=== PATIENT | male | born 1970 | race Caucasian/White ===

== ENCOUNTER 2017-06-20 12:59 | Emergency (ER) | payer OTHER ==
[~2017-06-20] VITALS: Ht 170.2 cm; Wt 71.1 kg
[2017-06-20 13:02] VITALS: TEMP 37.1; Ht 170.2 cm; Wt 71.1 kg
[2017-06-20 13:49] LABS: BASO % 0.1 %; BASO ABS # 0.01 K/uL (0-0.2); HEMATOCRIT 47.7 % (42-52); HEMOGLOBIN 16.9 g/dL (14.0-18.0); IG# 0.05 K/uL (0.00-0.02); LYMPH % 10.1 %; MEAN CELL VOLUME 87.7 fL (80-100); MEAN CORPUSCULAR HEMOGLOBIN 31.1 pg (25-34); MEAN CORPUSCULAR HGB CONC 35.4 g/dl (32-36); MONO % 8.5 %; MONO ABS # 1.18 K/uL (0.11-0.59); NEUT % 80.9 %; NEUT ABS # 11.29 K/uL (1.4-6.5); PLATELET COUNT 262 K/uL (130-400); RED CELL DISTRIBUTION WIDTH CV 13.1 % (11.5-14.5); RED CELL DISTRIBUTION WIDTH SD 41.7 fL (36.4-46.3); WHITE BLOOD COUNT 13.93 K/uL (4.8-10.8)
[2017-06-20] MEDS ORDERED: GI COCKTAIL PO STA (13:51)
[2017-06-20] MEDS ORDERED: ALUMINUM/MAGNESIUM SUSP 30 ML UDC ONE (13:54)
[2017-06-20] MEDS ORDERED: LIDOCAINE HCL 2% VISC SOLN 20 ML UDC ONE (13:54)
[2017-06-20 13:57] LABS: PTT PATIENT 25.1 SECONDS (21.0-31.0)
[2017-06-20] MEDS ORDERED: SODIUM CHLORIDE 0.9% 1000ML 1,000 ML IV STA (14:01)
[2017-06-20] MEDS ORDERED: ONDANSETRON INJ 2 MG/ML 2 ML VIAL IV STA (14:01)
[2017-06-20 14:07] LABS: ALBUMIN 4.3 gm/dl (3.4-5.0); ALT/SGPT 27 U/L (12-78); AST/SGOT 22 U/L (15-37); BLOOD UREA NITROGEN 22 mg/dl (7-18); CALCIUM 9.4 mg/dl (8.5-10.1); CARBON DIOXIDE 28 mmol/L (21-32); CREATININE 1.22 mg/dl (0.60-1.40); GLUCOSE 109 mg/dl (70-99); LIPASE 179 U/L (73-393); POTASSIUM 3.1 mmol/L (3.5-5.1); SODIUM 139 mmol/L (136-145)
[2017-06-20 14:12] LABS: ALKALINE PHOSPHATASE 87 U/L (45-117); TOTAL PROTEIN 8.6 gm/dl (6.4-8.2)
[2017-06-20] MEDS ORDERED: RANI150T85 PO (14:22)
[2017-06-20] MEDS ORDERED: OPTIRAY 320 IV PRN (14:30)
--- NOTE | 2017-06-20 14:43 | DIAGNOSTIC IMAGING REPORT ---
GALLBLADDER-ABD LIMITED CLINICAL HISTORY: 47 years-old Male presenting with ABd pain, emesis. TECHNIQUE: Real-time grayscale and limited color Doppler ultrasound imaging of the abdomen limited to the right upper quadrant was performed. COMPARISON: 04/09/2014. FINDINGS: Pancreas: Visualized portions of the pancreatic head and body normal. Liver: Heterogeneity of liver parenchyma echotexture, likely indicating fibrosis or steatosis. The liver measures 13.1 cm in maximal sagittal dimension. No sonographic evidence of hepatic mass. Main portal vein patent with normal directional flow. Biliary: No intrahepatic biliary ductal dilatation. Common bile duct measures up to 4-5 mm in diameter. Gallbladder: No evidence of gallstones, gallbladder wall thickening, gallbladder distention, or pericholecystic fluid or inflammatory change. Right kidney: Normal in appearance. No hydronephrosis. Ascites: None. Other: None. IMPRESSION: 1. Heterogeneity of liver parenchyma could suggest underlying steatosis or fibrosis. 2. No cholelithiasis or biliary ductal dilatation. Electronically signed by: Torito Luna M.D. 06/20/2017 2:42 PM Dictated Date/Time: 06/20/2017 2:40 PM
--- NOTE | 2017-06-20 16:15 | DIAGNOSTIC IMAGING REPORT ---
CT ABD/PELVIS IV AND ORAL CONT CLINICAL HISTORY: Generalized abdominal pain. Emesis. Hematochezia. COMPARISON STUDY: April 09, 2014 TECHNIQUE: Following the IV administration of 119 mL of Optiray-320, CT scan of the abdomen and pelvis was performed from the lung bases to the proximal femurs. Images are reviewed in the axial, sagittal, and coronal planes. IV contrast was administered without complication. A dose lowering technique was utilized adhering to the principles of ALARA. CT DOSE: 328.23 mGy.cm FINDINGS: Lower chest: There are mild dependent atelectatic changes. Liver: The contrast-enhanced liver is normal in size, contour, and attenuation. There is no intrahepatic biliary ductal dilatation. The hepatic veins and portal veins are patent. Gallbladder: Unremarkable. Spleen: Normal in size and attenuation. Pancreas: Unremarkable. Adrenal glands: Unremarkable. Kidneys: There is symmetric renal cortical enhancement. The kidneys are normal in size without hydronephrosis. Bowel: There are no transition zones indicate bowel obstruction. There is no evidence of acute appendicitis. There is colonic diverticulosis. There are no acute peridiverticular inflammatory changes. Peritoneum: There is no intraperitoneal free air or abdominal ascites. Vasculature: The abdominal aorta is normal in course and caliber. Adenopathy: None. Pelvic viscera: The bladder, and pelvic viscera are unremarkable. Skeletal structures: There is right-sided L5 spondylolysis IMPRESSION: 1. No acute intra-abdominal or pelvic findings 2. No evidence of bowel obstruction. No evidence of free air 3. No evidence of acute appendicitis 4. Diverticulosis. No evidence of acute diverticulitis. Electronically signed by: Darrin Michaud M.D. 06/20/2017 4:14 PM Dictated Date/Time: 06/20/2017 4:10 PM
[2017-06-20] MEDS ORDERED: POTASSIUM CHLORIDE 10 MEQ TABCR PO STA (17:10)
[2017-06-20] MEDS ORDERED: ONDA4TAB10 SL (17:15)
[2017-06-20] MEDS ORDERED: FAMO20TA9 PO (17:15)
--- NOTE | 2017-06-20 17:15 | EMERGENCY ROOM VISIT NOTE ---
History First contact with patient: 13:06 Chief Complaint: ABDOMINAL PAIN Stated Complaint: PAIN IN STOMACH Nursing Triage Summary: Pt reports diarrhea and vomiting since yesterday. Pt stated "I have been having issues with getting nauseous while I am having a BM for the past 8 months." also reports "blood in vomit and stool." Coffee ground emesis. Abdominal pain is 2/10 at this time. Regular bowel movements. History of Present Illness The patient is a 47 year old male who presents to the Emergency Room with complaints of "abdominal pain". The patient states that he has been experiencing abdominal pain/nausea and vomiting now for about 8 months. It has worsened over the past few days. The patient states that all of this began as nausea, and he thought this was because of not eating well. He notes that his stools are also now peanut butter colored, and some mucus. He states that there is increase in bowel movement frequency. He also notes that at times he will have the sensation of vomit directly after defecation. He states that last night he went to the bathroom 10 times, and small drops of blood were visualized in the toilet bowl. He has tried Zantac and Tums which help slightly. He takes ibuprofen every other day. He also try Zantac at times. He does admit to a 30 year history of marijuana smoking. No other drug use. No real tobacco or alcohol use. He rates the overall abdominal pain as a 4/10. Review of Systems A complete 10-point Review of Systems was discussed with the patient, with pertinent positives and negatives listed in the History of Present Illness. All remaining Review of Systems questions can be considered negative unless otherwise specified. Past Medical/Surgical History Medical Problems: (1) No known health problems Family History Diabetes, high blood pressure, cancer, gallbladder disease. Social History Smoking Status: Current Every Day Smoker Alcohol Use: none Drug Use: none Marital Status: Housing Status: lives with family Occupation Status: employed Current/Historical Medications Scheduled Famotidine (Pepcid), 20 MG PO DAILY Ondasetron Odt (Zofran Odt), 4 MG SL Q6H Ranitidine (Zantac), 150 MG PO DAILY Allergies Coded Allergies: No Known Allergies (Unverified , NONE, 01/08/13) Physical Exam Vital Signs Date Time Temp Pulse Resp B/P (MAP) Pulse Ox O2 Delivery O2 Flow Rate FiO2 06/20/17 17:22 77 16 128/74 96 Room Air 06/20/17 16:52 78 16 104/69 98 Room Air 06/20/17 14:44 61 16 136/87 98 Room Air 06/20/17 13:02 37.1 80 16 130/92 100 Room Air Physical Exam VITAL SIGNS - Vital signs and nursing notes were reviewed. Stable. Afebrile. GENERAL -47-year-old male appearing his stated age who is in no acute distress. Communicates well with provider and answers questions appropriately. SKIN - Without rashes. HEAD - NC/AT. EYES - PERRL with EOMI bilaterally. Sclera anicteric. EARS - No deformities of external structures noted on gross examination bilaterally. NOSE - Midline and without cyanosis. No epistaxis or purulent drainage noted. Septum midline without deviation or septal hematoma noted. MOUTH/OROPHARYNX - Without perioral cyanosis. NECK - No nuchal rigidity. LUNGS - Chest wall symmetric without accessory muscle use, intercostals retractions, or central cyanosis. Normal vesicular breath sounds CTA B/L. No wheezes, rales, or rhonchi appreciated. CARDIAC - RRR with S1/S2. No murmur, rubs, or gallops appreciated. ABDOMEN - Abdominal contour normal without pulsations or visible masses. BS normoactive all four quadrants. No tenderness, palpable masses, hepatosplenomegaly, or ascites noted. PSYCH - A&O, and cooperates fully with examiner. Pt is very pleasant and interacts well with examiner. RECTAL: After consent was obtained Hemoccult was obtained and was found to be negative. Rectal exam unremarkable. Medical Decision & Procedures ER Provider Diagnostic Interpretation: [~ rep ct add3]] GALLBLADDER-ABD LIMITED CLINICAL HISTORY: 47 years-old Male presenting with ABd pain, emesis. TECHNIQUE: Real-time grayscale and limited color Doppler ultrasound imaging of the abdomen limited to the right upper quadrant was performed. COMPARISON: 04/09/2014. FINDINGS: Pancreas: Visualized portions of the pancreatic head and body normal. Liver: Heterogeneity of liver parenchyma echotexture, likely indicating fibrosis or steatosis. The liver measures 13.1 cm in maximal sagittal dimension. No sonographic evidence of hepatic mass. Main portal vein patent with normal directional flow. Biliary: No intrahepatic biliary ductal dilatation. Common bile duct measures up to 4-5 mm in diameter. Gallbladder: No evidence of gallstones, gallbladder wall thickening, gallbladder distention, or pericholecystic fluid or inflammatory change. Right kidney: Normal in appearance. No hydronephrosis. Ascites: None. Other: None. IMPRESSION: 1. Heterogeneity of liver parenchyma could suggest underlying steatosis or fibrosis. 2. No cholelithiasis or biliary ductal dilatation. Electronically signed by: Torito Luna M.D. 06/20/2017 2:42 PM Dictated Date/Time: 06/20/2017 2:[address] ABD/PELVIS IV AND ORAL CONT CLINICAL HISTORY: Generalized abdominal pain. Emesis. Hematochezia. COMPARISON STUDY: April 09, 2014 TECHNIQUE: Following the IV administration of 119 mL of Optiray-320, CT scan of the abdomen and pelvis was performed from the lung bases to the proximal femurs. Images are reviewed in the axial, sagittal, and coronal planes. IV contrast was administered without complication. A dose lowering technique was utilized adhering to the principles of ALARA. CT DOSE: 328.23 mGy.cm FINDINGS: Lower chest: There are mild dependent atelectatic changes. Liver: The contrast-enhanced liver is normal in size, contour, and attenuation. There is no intrahepatic biliary ductal dilatation. The hepatic veins and portal veins are patent. Gallbladder: Unremarkable. Spleen: Normal in size and attenuation. Pancreas: Unremarkable. Adrenal glands: Unremarkable. Kidneys: There is symmetric renal cortical enhancement. The kidneys are normal in size without hydronephrosis. Bowel: There are no transition zones indicate bowel obstruction. There is no evidence of acute appendicitis. There is colonic diverticulosis. There are no acute peridiverticular inflammatory changes. Peritoneum: There is no intraperitoneal free air or abdominal ascites. Vasculature: The abdominal aorta is normal in course and caliber. Adenopathy: None. Pelvic viscera: The bladder, and pelvic viscera are unremarkable. Skeletal structures: There is right-sided L5 spondylolysis IMPRESSION: 1. No acute intra-abdominal or pelvic findings 2. No evidence of bowel obstruction. No evidence of free air 3. No evidence of acute appendicitis 4. Diverticulosis. No evidence of acute diverticulitis. Electronically signed by: Darrin Michaud M.D. 06/20/2017 4:14 PM Dictated Date/Time: 06/20/2017 4:10 PM Laboratory Results 06/20/17 13:40 Red Blood Count 5.44, Mean Corpuscular Volume 87.7, Mean Corpuscular Hemoglobin 31.1, Mean Corpuscular Hemoglobin Concent 35.4, Mean Platelet Volume 9.0, Neutrophils (%) (Auto) 80.9, Lymphocytes (%) (Auto) 10.1, Monocytes (%) (Auto) 8.5, Eosinophils (%) (Auto) 0.0, Basophils (%) (Auto) 0.1, Neutrophils # (Auto) 11.29, Lymphocytes # (Auto) 1.40, Monocytes # (Auto) 1.18, Eosinophils # (Auto) 0.00, Basophils # (Auto) 0.01 06/20/17 13:40 Test 06/20/17 13:40 06/20/17 14:00 White Blood Count 13.93 K/uL (4.8-10.8) Red Blood Count 5.44 M/uL (4.7-6.1) Hemoglobin 16.9 g/dL (14.0-18.0) Hematocrit 47.7 % (42-52) Mean Corpuscular Volume 87.7 fL (80-100) Mean Corpuscular Hemoglobin 31.1 pg (25-34) Mean Corpuscular Hemoglobin Concent 35.4 g/dl (32-36) Platelet Count 262 K/uL (130-400) Mean Platelet Volume 9.0 fL (7.4-10.4) Neutrophils (%) (Auto) 80.9 % Lymphocytes (%) (Auto) 10.1 % Monocytes (%) (Auto) 8.5 % Eosinophils (%) (Auto) 0.0 % Basophils (%) (Auto) 0.1 % Neutrophils # (Auto) 11.29 K/uL (1.4-6.5) Lymphocytes # (Auto) 1.40 K/uL (1.2-3.4) Monocytes # (Auto) 1.18 K/uL (0.11-0.59) Eosinophils # (Auto) 0.00 K/uL (0-0.5) Basophils # (Auto) 0.01 K/uL (0-0.2) RDW Standard Deviation 41.7 fL (36.4-46.3) RDW Coefficient of Variation 13.1 % (11.5-14.5) Immature Granulocyte % (Auto) 0.4 % Immature Granulocyte # (Auto) 0.05 K/uL (0.00-0.02) Prothrombin Time 10.7 SECONDS (9.0-12.0) Prothromb Time International Ratio 1.0 (0.9-1.1) Activated Partial Thromboplast Time 25.1 SECONDS (21.0-31.0) Partial Thromboplastin Ratio 1.0 Anion Gap 5.0 mmol/L (3-11) Est Creatinine Clear Calc Drug Dose 68.5 ml/min Estimated GFR () 80.2 Estimated GFR (Non- 69.2 BUN/Creatinine Ratio 17.6 (10-20) Calcium Level 9.4 mg/dl (8.5-10.1) Total Bilirubin 0.6 mg/dl (0.2-1) Aspartate Amino Transf (AST/SGOT) 22 U/L (15-37) Alanine Aminotransferase (ALT/SGPT) 27 U/L (12-78) Alkaline Phosphatase 87 U/L (45-117) Troponin I < 0.015 ng/ml (0-0.045) Total Protein 8.6 gm/dl (6.4-8.2) Albumin 4.3 gm/dl (3.4-5.0) Globulin 4.3 gm/dl (2.5-4.0) Albumin/Globulin Ratio 1.0 (0.9-2) Lipase 179 U/L (73-393) Urine Color DK YELLOW Urine Appearance CLEAR (CLEAR) Urine pH 7.0 (4.5-7.5) Urine Specific [place] 1.030 (1.000-1.030) Urine Protein 2+ (NEG) Urine Glucose (UA) NEG (NEG) Urine Ketones 2+ (NEG) Urine Occult Blood 3+ (NEG) Urine Nitrite NEG (NEG) Urine Bilirubin NEG (NEG) Urine Urobilinogen NEG (NEG) Urine Leukocyte Esterase NEG (NEG) Urine WBC (Auto) 1-5 /hpf (0-5) Urine RBC (Auto) >30 /hpf (0-4) Urine Hyaline Casts (Auto) 1-5 /lpf (0-5) Urine Epithelial Cells (Auto) 10-20 /lpf (0-5) Urine Bacteria (Auto) NEG (NEG) Medications Administered Medications (Trade) Dose Ordered Sig/Armando Route Start Time Stop Time Status Last Admin Dose Admin Al Hydroxide/Mg Hydroxide (Maalox Susp) 30 ml STK-MED ONCE .ROUTE 06/20/17 13:54 06/20/17 13:55 DC 06/20/17 13:59 30 ML Lidocaine HCl (Viscous Lidocaine 2% Soln) 20 ml STK-MED ONCE .ROUTE 06/20/17 13:54 06/20/17 13:55 DC 06/20/17 13:58 20 ML Sodium Chloride 1,000 ml @ 999 mls/hr Q1H1M STAT IV 06/20/17 14:01 06/20/17 15:10 DC 06/20/17 14:43 999 MLS/HR Ondansetron HCl (Zofran Inj) 4 mg NOW STAT IV 06/20/17 14:01 06/20/17 14:03 DC 06/20/17 14:43 4 MG Medical Decision Patient was seen and evaluated as above in room B5. Review was performed of nursing notes and vital signs. After obtaining a thorough history and physical examination the above work up was performed. CBC reveals slight leukocytosis. No concerning anemia. Coags normal. There is hypokalemia. There is evidence of dehydration with BUN slightly elevated. Gallbladder ultrasound was obtained. This was found to be negative and CT abd/pelvis which was also essentially negative. CT abd/pelvis obtained with the use of contrast. He attempted to drink the contrast but notes it was difficult. He was able to tolerate p.o. liquids prior to departure. CT was obtained because of the patient's persistence of abdominal complaints. Patient was not able to write emesis for us to test for Hemoccult. Rectal exam was performed after obtaining consent and no blood was noted. This was negative. I suspect he is likely experiencing reflux, and also possibly hyperemesis secondary to marijuana usage. No evidence of emergent process. I did discuss the case with the attending physician and subsequently the on-call GI specialist, Dr. Mendez. He does recommend discussing cessation of the marijuana use, initiation of Pepcid, and follow-up in the office by him calling first thing tomorrow. I believe this is reasonable. The patient was educated upon management, had questions answered prior to discharge, and was discharged home in good condition. He will also be given Zofran for nausea at home. While here he was given a GI cocktail, fluids and Zofran. Case was discussed with the attending physician. In the evaluation and treatment of this patient the following differential diagnoses were entertained: Gastritis, reflux, GERD, appendicitis, acute cholecystitis, hyperemesis cannabis Impression Primary Impression: Nausea & vomiting Additional Impression: Hypokalemia Departure Information Dispostion Home / Self-Care Condition GOOD Prescriptions Famotidine (PEPCID) 20 Mg Tab 20 MG PO DAILY for 30 Days, #30 TAB Prov: Nolan Ivory PA-C 06/20/17 Ondasetron Odt (ZOFRAN ODT) 4 Mg Tab 4 MG SL Q6H for Nausea, #6 TAB Prov: Nolan Ivory PA-C 18 Referrals No Doctor, Assigned (PCP) Frederick Mendez D.O. Patient Instructions Hypokalemia Dc, My [facility] Additional Instructions You have been treated in the Emergency Department your Abdominal Pain. Laboratory results and imaging studies have ruled out any emergent causes for your abdominal pain which would warrant admission or surgery. However, I do recommend follow-up with the computer technical support specialist. This is Dr. Mendez. At this time we recommend beginning Pepcid, 20 mg daily, as well as trying to cut back/ stop the marijuana usage. Your potassium was found to be low. Please refer to the handout with foods that are high in potassium. This should be repeated with the family doctor. Please follow-up as we discussed. They note they would likely be L to see this week all you have to do is call them tomorrow. I have listed Dr. Mendez's number in this paperwork. Zofran may be used for nausea. This is 1 tablet every 6 hours as needed for nausea. Please do not take any more ibuprofen. Drink plenty of water and stay well hydrated. As with any trip to the Emergency Department, you should follow-up with your Primary Care Provider from today's visit. Return to the emergency department if your symptoms persist despite treatment plan outlined above or if the following symptoms occur: increased fevers, chills , worsening nausea/vomiting, blood in your stool or urine. Problem Qualifiers
[2017-06-20 17:22] VITALS: BP 128/74; PULSE 77; O2SAT 96
== END 2017-06-20 17:29 | disposition home or self-care (01) ==
LOC: C.EDB 13:00
DX: R11.2 Nausea with vomiting, unspecified (principal); E87.6 Hypokalemia; F17.200 Nicotine dependence, unspecified, uncomplicated

== ENCOUNTER → 2017-06-22 | Outpatient (CLI) | payer OTHER ==
[~2017-06-22] MED LIST: FAMO20TA9 PO; ONDA4TAB10 SL; RANI150T85 PO
[2017-06-22 17:48] LABS: BASO % 0.3 %; BASO ABS # 0.03 K/uL (0-0.2); EOS % 1.5 %; EOS ABS # 0.16 K/uL (0-0.5); HEMATOCRIT 48.1 % (42-52); HEMOGLOBIN 16.1 g/dL (14.0-18.0); IG# 0.02 K/uL (0.00-0.02); LYMPH % 27.5 %; LYMPH ABS # 3.02 K/uL (1.2-3.4); MEAN CELL VOLUME 90.8 fL (80-100); MEAN CORPUSCULAR HEMOGLOBIN 30.4 pg (25-34); MEAN CORPUSCULAR HGB CONC 33.5 g/dl (32-36); MEAN PLATELET VOLUME 9.6 fL (7.4-10.4); MONO % 14.4 %; MONO ABS # 1.58 K/uL (0.11-0.59); NEUT % 56.1 %; NEUT ABS # 6.17 K/uL (1.4-6.5); PLATELET COUNT 260 K/uL (130-400); RED CELL DISTRIBUTION WIDTH CV 13.4 % (11.5-14.5); RED CELL DISTRIBUTION WIDTH SD 43.7 fL (36.4-46.3); WHITE BLOOD COUNT 10.98 K/uL (4.8-10.8)
[2017-06-22 18:11] LABS: BLOOD UREA NITROGEN 26 mg/dl (7-18); CALCIUM 8.6 mg/dl (8.5-10.1); CARBON DIOXIDE 26 mmol/L (21-32); CREATININE 1.14 mg/dl (0.60-1.40); GLUCOSE 84 mg/dl (70-99); POTASSIUM 3.5 mmol/L (3.5-5.1); SODIUM 138 mmol/L (136-145)
== END | disposition home or self-care (01) ==
LOC: C.LABBFT 14:53
PROVIDERS: ATTEND Nurse Practitioner
DX: R31.29 Other microscopic hematuria (principal); R80.9 Proteinuria, unspecified; R11.2 Nausea with vomiting, unspecified

== ENCOUNTER 2017-10-26 15:41 | Emergency (ER) | payer OTHER ==
[~2017-10-26] VITALS: Ht 170.2 cm; Wt 69.9 kg
[~2017-10-26 15:41] MED LIST changes: -FAMO20TA9 PO
[2017-10-26 15:45] VITALS: TEMP 36.8; Ht 170.2 cm; Wt 69.9 kg
[2017-10-26] MEDS ORDERED: ONDANSETRON INJ 2 MG/ML 2 ML VIAL IV STA (16:25)
[2017-10-26] MEDS ORDERED: SODIUM CHLORIDE 0.9% 1000ML 1,000 ML IV STA (16:25)
[2017-10-26 16:55] LABS: BASO % 0.3 %; BASO ABS # 0.03 K/uL (0-0.2); EOS % 0.2 %; EOS ABS # 0.02 K/uL (0-0.5); HEMATOCRIT 45.8 % (42-52); IG# 0.02 K/uL (0.00-0.02); LYMPH % 15.6 %; LYMPH ABS # 1.62 K/uL (1.2-3.4); MEAN CELL VOLUME 87.1 fL (80-100); MEAN CORPUSCULAR HEMOGLOBIN 30.4 pg (25-34); MEAN CORPUSCULAR HGB CONC 34.9 g/dl (32-36); MEAN PLATELET VOLUME 9.4 fL (7.4-10.4); MONO % 10.6 %; NEUT % 73.1 %; PLATELET COUNT 277 K/uL (130-400); RED CELL DISTRIBUTION WIDTH CV 12.9 % (11.5-14.5); RED CELL DISTRIBUTION WIDTH SD 41.4 fL (36.4-46.3); WHITE BLOOD COUNT 10.39 K/uL (4.8-10.8)
[2017-10-26] MEDS ORDERED: PRT/20 PO (17:15)
[2017-10-26 17:17] LABS: ALBUMIN 4.2 gm/dl (3.4-5.0); CALCIUM 9.4 mg/dl (8.5-10.1); CREATININE 1.22 mg/dl (0.60-1.40); POTASSIUM 3.3 mmol/L (3.5-5.1); TOTAL PROTEIN 8.6 gm/dl (6.4-8.2)
--- NOTE | 2017-10-26 17:22 | DIAGNOSTIC IMAGING REPORT ---
ABDOMEN 2VIEW W/PA CHEST RTN CLINICAL HISTORY: Nausea, vomiting. Weight loss. Loss of appetite. COMPARISON STUDY: CT scan dated 06/20/2017 FINDINGS: The erect chest reveals no evidence of free air. There is no evidence of focal pulmonary consolidation.] Erect and supine views of the abdomen reveal no abnormally dilated loops of large or small bowel. There are no transition zone to indicate bowel obstruction. IMPRESSION: No evidence of bowel obstruction. No evidence of free air. Electronically signed by: Darrin Michaud M.D. 10/26/2017 5:20 PM Dictated Date/Time: 10/26/2017 5:20 PM
[2017-10-26] MEDS ORDERED: POTASSIUM CHLORIDE 10 MEQ TABCR PO STA (17:48)
[2017-10-26] MEDS ORDERED: ONDA4TAB10 SL (18:03)
[2017-10-26 18:44] VITALS: BP 110/76; PULSE 66; O2SAT 98
--- NOTE | 2017-10-26 20:13 | EMERGENCY ROOM VISIT NOTE ---
History Report prepared by Ellen: Dee Dee Correia Under the Supervision of: Dr. Peyman Kelly M.D. First contact with patient: 15:58 Chief Complaint: ABDOMINAL PAIN Stated Complaint: STOMACH PAIN, VOMITING History of Present Illness The patient is a 47 year old male who presents to the Emergency Room with complaints of worsening abdominal pain for 3 days. The patient states that he had abdominal pain like this before in July. He states that at that time they did CT scans, an endoscopy and a colonoscopy, but everything was negative. He currently rates his pain as a 3/10 in severity. He reports that along with the abdominal pain he has vomiting. He reports that he has vomited many times since the pain started. He reports that he Googled his symptoms and believes he has cannabinoid hyperemesis syndrome. He notes that he smokes a lot of cannabis and last smoked 4 days ago. He notes that he "only smokes homegrown marijuana". The patient denies a history of Diabetes, smoking anything that was laced, drinking alcohol, using illicit drugs, hematemesis, black colored vomit, hematochezia, hematuria, melena, and a history of abdominal surgeries. Source of History: patient, parent Onset: 3 days ago Position: abdomen Symptom Intensity: 3/10 Timing: worsening Associated Symptoms: + fevers, + vomiting, No melena, No hematochezia, No urinary symptoms Note: The patient complains of weight loss. The patient's mother complains of the patient being redder than normal. The patient denies a history of Diabetes, smoking anything that was laced, drinking alcohol, using illicit drugs, hematemesis, black colored vomit, and a history of abdominal surgeries. Review of Systems See HPI for pertinent positives and negatives. A total of ten systems were reviewed and were otherwise negative. Past Medical & Surgical Medical Problems: (1) No known health problems Family History No pertinent family history Social History Smoking Status: Never Smoker Alcohol Use: none Drug Use: none Marital Status: Housing Status: lives with family Occupation Status: employed Current/Historical Medications Scheduled Ondasetron Odt (Zofran Odt), 4 MG SL TID Pantoprazole (Protonix), 20 MG PO DAILY Allergies Coded Allergies: No Known Allergies (Unverified , NONE, 10/26/17) Physical Exam Vital Signs Date Time Temp Pulse Resp B/P (MAP) Pulse Ox O2 Delivery O2 Flow Rate FiO2 10/26/17 18:44 66 16 110/76 98 10/26/17 17:45 60 17 115/76 98 Room Air 10/26/17 15:45 36.8 65 17 136/92 98 Room Air Physical Exam Physical Exam GENERAL: He is oriented to person, place, and time. He appears well-developed and well-nourished. He does not appear distressed. HENT: Exam performed. Head: Normocephalic and atraumatic. Right Ear: External ear normal. No mastoid tenderness. Left Ear: External ear normal. No mastoid tenderness. Mouth/Throat: The oropharynx is clear and moist. No trismus in the jaw. No dental abscesses or uvula swelling. No oropharyngeal exudate or tonsillar abscesses. EYES: Conjunctivae and EOM are normal. Pupils are equal, round, and reactive to light. Right eye exhibits no discharge. Left eye exhibits no discharge. No scleral icterus. NECK: Normal range of motion. Neck supple. No JVD present. No spinous process tenderness present. No carotid bruit present. No rigidity. No tracheal deviation and normal range of motion present. No Brudzinski's sign and no Kernig 's sign noted. CV: Normal rate, regular rhythm, normal heart sounds and intact distal pulses. There is no peripheral edema. Palpable radial pulses bue. PULM/CHEST: Effort normal and breath sounds normal. No respiratory distress. No stridor. He has no wheezes. He has no rales. Chest Wall: He exhibits no tenderness. ABD: The abdomen is soft. Bowel sounds are normal. He has no distension. No mass is present. There is no tenderness. There is no rebound, no guarding, no Muhammad's sign and no tenderness at McBurney's point. Rovsig negative. MUSC/SKEL: Normal range of motion. There is no peripheral edema, tenderness or deformity. LYMPH: No cervical adenopathy. NEURO: He is alert and oriented to person, place, and time. He has normal strength. No cranial nerve deficit or sensory deficit. Coordination and gait normal. GCS eye subscore is 4. GCS verbal subscore is 5. GCS motor subscore is 6. Cerebellar tests wnl. SKIN: Skin is warm and dry. He is not diaphoretic. PSYCH: He has a normal mood and affect. Behavior is normal. Judgment and thought content normal. Medical Decision & Procedures ER Provider Diagnostic Interpretation: Radiology results as stated below per my review and radiologist interpretation: ABDOMEN 2VIEW W/PA CHEST RTN CLINICAL HISTORY: Nausea, vomiting. Weight loss. Loss of appetite. COMPARISON STUDY: CT scan dated 06/20/2017 FINDINGS: The erect chest reveals no evidence of free air. There is no evidence of focal pulmonary consolidation.] Erect and supine views of the abdomen reveal no abnormally dilated loops of large or small bowel. There are no transition zone to indicate bowel obstruction. IMPRESSION: No evidence of bowel obstruction. No evidence of free air. Electronically signed by: Darrin Michaud M.D. 10/26/2017 5:20 PM Dictated Date/Time: 10/26/2017 5:20 PM Laboratory Results 10/26/17 16:35 Red Blood Count 5.26, Mean Corpuscular Volume 87.1, Mean Corpuscular Hemoglobin 30.4, Mean Corpuscular Hemoglobin Concent 34.9, Mean Platelet Volume 9.4, Neutrophils (%) (Auto) 73.1, Lymphocytes (%) (Auto) 15.6, Monocytes (%) (Auto) 10.6, Eosinophils (%) (Auto) 0.2, Basophils (%) (Auto) 0.3, Neutrophils # (Auto ) 7.60, Lymphocytes # (Auto) 1.62, Monocytes # (Auto) 1.10, Eosinophils # (Auto ) 0.02, Basophils # (Auto) 0.03 10/26/17 16:35 Test 10/26/17 16:35 White Blood Count 10.39 K/uL (4.8-10.8) Red Blood Count 5.26 M/uL (4.7-6.1) Hemoglobin 16.0 g/dL (14.0-18.0) Hematocrit 45.8 % (42-52) Mean Corpuscular Volume 87.1 fL (80-100) Mean Corpuscular Hemoglobin 30.4 pg (25-34) Mean Corpuscular Hemoglobin Concent 34.9 g/dl (32-36) Platelet Count 277 K/uL (130-400) Mean Platelet Volume 9.4 fL (7.4-10.4) Neutrophils (%) (Auto) 73.1 % Lymphocytes (%) (Auto) 15.6 % Monocytes (%) (Auto) 10.6 % Eosinophils (%) (Auto) 0.2 % Basophils (%) (Auto) 0.3 % Neutrophils # (Auto) 7.60 K/uL (1.4-6.5) Lymphocytes # (Auto) 1.62 K/uL (1.2-3.4) Monocytes # (Auto) 1.10 K/uL (0.11-0.59) Eosinophils # (Auto) 0.02 K/uL (0-0.5) Basophils # (Auto) 0.03 K/uL (0-0.2) RDW Standard Deviation 41.4 fL (36.4-46.3) RDW Coefficient of Variation 12.9 % (11.5-14.5) Immature Granulocyte % (Auto) 0.2 % Immature Granulocyte # (Auto) 0.02 K/uL (0.00-0.02) Anion Gap 13.0 mmol/L (3-11) Est Creatinine Clear Calc Drug Dose 68.5 ml/min Estimated GFR () 80.2 Estimated GFR (Non- 69.2 BUN/Creatinine Ratio 19.2 (10-20) Calcium Level 9.4 mg/dl (8.5-10.1) Total Bilirubin 0.7 mg/dl (0.2-1) Direct Bilirubin 0.2 mg/dl (0-0.2) Aspartate Amino Transf (AST/SGOT) 17 U/L (15-37) Alanine Aminotransferase (ALT/SGPT) 27 U/L (12-78) Alkaline Phosphatase 90 U/L (45-117) Total Protein 8.6 gm/dl (6.4-8.2) Albumin 4.2 gm/dl (3.4-5.0) Lipase 167 U/L (73-393) Laboratory results reviewed by me Medications Administered Medications (Trade) Dose Ordered Sig/Armando Route Start Time Stop Time Status Last Admin Dose Admin Sodium Chloride 1,000 ml @ 999 mls/hr Q1H1M STAT IV 10/26/17 16:25 10/26/17 17:25 DC 10/26/17 16:39 999 MLS/HR Ondansetron HCl (Zofran Inj) 4 mg NOW STAT IV 10/26/17 16:25 10/26/17 16:28 DC 10/26/17 16:38 4 MG Potassium Chloride (Klor-Con M10) 20 meq NOW STAT PO 10/26/17 17:48 10/26/17 17:50 DC 10/26/17 17:48 20 MEQ ED Course 1621: The patient was evaluated in room B6. A complete history and physical exam was performed. 1625: Ordered Zofran Inj 4 mg IV, NSS 1000 ml @ 999 mls/hr IV. 1744:Vitals signs were stable. His repeat abdomen exam is within normal limits. Labs are within normal limits with the exception of his Potassium at 3.3. Imaging is within normal limits. Potassium was replaced in the ED. He will be discharged with a prescription of Zofran and recommends to stop using cannabinoids. DISCHARGE - Plan of care discussed with patient and questions answered. The patient was given both verbal and printed discharge instructions. The patient verbalized understanding and ability to comply. The patient is to seek outpatient follow up as noted in the discharge instructions. The patient verbalized understanding and ability to comply. The patient is discharged in stable condition. The patient was instructed to return for worsening symptoms. 1748: Ordered Potassium Chloride 20 meq PO. Medical Decision Vitals signs were stable. His repeat abdomen exam is within normal limits. Labs are within normal limits with the exception of his Potassium at 3.3. Imaging is within normal limits. Potassium was replaced in the ED. He will be discharged with a prescription of Zofran and recommends to stop using cannabinoids. DISCHARGE - Plan of care discussed with patient and questions answered. The patient was given both verbal and printed discharge instructions. The patient verbalized understanding and ability to comply. The patient is to seek outpatient follow up as noted in the discharge instructions. The patient verbalized understanding and ability to comply. The patient is discharged in stable condition. The patient was instructed to return for worsening symptoms. Medication Reconcilliation Current Medication List: was personally reviewed by me Blood Pressure Screening Patient's blood pressure: Normal blood pressure Blood pressure disposition: Did not require urgent referral Impression Primary Impression: Cannabinoid hyperemesis syndrome Scribe Attestation The scribe's documentation has been prepared under my direction and personally reviewed by me in its entirety. I confirm that the note above accurately reflects all work, treatment, procedures, and medical decision making performed by me. The chart was completed utilizing Dragon Speech voice recognition software. Grammatical errors, random word insertions, pronoun errors, and incomplete sentences are an occasional consequence of this system due to software limitations, ambient noise, and hardware issues. Any formal questions or concerns about the content, text, or information contained within the body of this dictation should be directly addressed to the physician for clarification. Departure Information Dispostion Home / Self-Care Prescriptions Ondasetron Odt (ZOFRAN ODT) 4 Mg Tab 4 MG SL TID for Nausea, #30 TAB Prov: Peyman Kelly M.D. 10/26/17 Referrals Amol Ferris M.D. (PCP) Forms Call Back Authorization, HOME CARE DOCUMENTATION FORM, IMPORTANT VISIT INFORMATION Patient Instructions My [facility] Additional Instructions Return to the emergency department if you develop fever greater 100.4, persistent vomiting, blood in your vomit, dark black vomit, or your symptoms worsen. Refrain from smoking cannabinoids.
== END 2017-10-26 18:44 | disposition home or self-care (01) ==
LOC: C.EDB 15:42
DX: F12.188 Cannabis abuse with other cannabis-induced disorder (principal); R11.10 Vomiting, unspecified; E87.6 Hypokalemia

== ENCOUNTER 2017-10-30 13:27 | Emergency (ER) | payer OTHER ==
[~2017-10-30] VITALS: Ht 170.2 cm; Wt 67.0 kg
[~2017-10-30 13:27] MED LIST changes: +PRT/20 PO; -RANI150T85 PO
[2017-10-30 13:31] VITALS: Ht 170.2 cm; Wt 67.0 kg
[2017-10-30] MEDS ORDERED: ONDANSETRON 8 MG/54 ML D5W IV STA (13:48)
[2017-10-30] MEDS ORDERED: GI COCKTAIL PO STA (13:48)
[2017-10-30] MEDS ORDERED: SODIUM CHLORIDE 0.9% 1000ML 2,000 ML IV STA (13:48)
[2017-10-30] MEDS ORDERED: ONDANSETRON INJ 8 MG in DEXTROSE 5% 50ML 50 ML IV SCH (13:53)
[2017-10-30] MEDS ORDERED: ALUMINUM/MAGNESIUM SUSP 30 ML UDC ONE (14:44)
[2017-10-30] MEDS ORDERED: LIDOCAINE HCL 2% VISC SOLN 20 ML UDC ONE (14:44)
[2017-10-30 14:49] LABS: BASO % 0.3 %; BASO ABS # 0.03 K/uL (0-0.2); EOS % 0.7 %; EOS ABS # 0.07 K/uL (0-0.5); HEMATOCRIT 47.3 % (42-52); HEMOGLOBIN 16.6 g/dL (14.0-18.0); IG# 0.02 K/uL (0.00-0.02); LYMPH ABS # 2.33 K/uL (1.2-3.4); MEAN CELL VOLUME 86.9 fL (80-100); MEAN CORPUSCULAR HEMOGLOBIN 30.5 pg (25-34); MEAN CORPUSCULAR HGB CONC 35.1 g/dl (32-36); MEAN PLATELET VOLUME 9.3 fL (7.4-10.4); MONO % 9.5 %; MONO ABS # 1.01 K/uL (0.11-0.59); NEUT % 67.3 %; NEUT ABS # 7.14 K/uL (1.4-6.5); PLATELET COUNT 277 K/uL (130-400); RED CELL DISTRIBUTION WIDTH CV 12.7 % (11.5-14.5); RED CELL DISTRIBUTION WIDTH SD 40.5 fL (36.4-46.3)
[2017-10-30 15:14] LABS: ALKALINE PHOSPHATASE 89 U/L (45-117); ALT/SGPT 34 U/L (12-78); AST/SGOT 14 U/L (15-37); BLOOD UREA NITROGEN 27 mg/dl (7-18); CALCIUM 8.8 mg/dl (8.5-10.1); CARBON DIOXIDE 23 mmol/L (21-32); CREATININE 1.25 mg/dl (0.60-1.40); GLUCOSE 78 mg/dl (70-99); LIPASE 178 U/L (73-393); POTASSIUM 3.9 mmol/L (3.5-5.1); SODIUM 136 mmol/L (136-145); TOTAL PROTEIN 8.2 gm/dl (6.4-8.2)
--- NOTE | 2017-10-30 15:50 | EMERGENCY ROOM VISIT NOTE ---
ED Visit Note First contact with patient: 13:38 CHIEF COMPLAINT: Nausea/vomiting, epigastric and chest pain HISTORY OF PRESENTING ILLNESS: This is a 47-year-old male past medical history significant for GERD who presents to the emergency department today by private vehicle with his mother with complaints of persistent nausea and vomiting for the past 10 days. Patient has had extensive workup in the past by his GI doctor. He states that it is now believed that his symptoms are secondary to cannabinoid use and hyperemesis syndrome. He states that he has not had any cannabinoids for the past 9 days. He did feel that his nausea and vomiting was improving for the past day or 2 and was able to tolerate clear liquids and a few bites of applesauce without vomiting, however he began to vomit again today. He has diffuse burning sensation in his upper abdomen radiating up into his chest he describes as burning and feels like his indigestion, and has been constant since this morning, he rates it as 4/10. He did not take any medications for this pain. He has been taking Zofran for the nausea and vomiting but states it is not working for him. He denies any fevers or chills, denies diarrhea or constipation, denies bloody or black stools. He denies any bloody, black, or coffee-ground emesis. He denies any headaches, vision changes , neck pain or stiffness, shortness of breath, back pain, urinary symptoms, or unusual rash. He states he is mostly here because he feels dehydrated, he has been feeling dizzy and weak, and he is worried about not being able to keep down any fluids. He does note that he has a follow-up appointment with his PCP tomorrow. REVIEW OF SYSTEMS: A complete 10 point review of systems was reviewed with the patient with pertinent positives and negatives as per history of present illness. All else were negative. PAST MEDICAL HISTORY: Reviewed in chart, see problem list below. SOCIAL HISTORY: Lives at home. Reports previous heavy marijuana use. Denies alcohol use, denies tobacco use. ALLERGIES: No known allergies. PHYSICAL EXAM: CONSTITUTIONAL: Pleasant and cooperative. No acute distress, but appears uncomfortable. Moderately dehydrated. Nontoxic-appearing. HEENT: Normocephalic, atraumatic. Pupils equal, round and reactive to light, EOMI. TMs normal. Pharynx normal. Dry mucous membranes. NECK: Supple, full active range of motion without discomfort. RESPIRATORY: Clear to auscultation bilaterally with no wheezing, crackles, rhonchi or stridor. Equal expansion bilaterally. CARDIOVASCULAR: Regular rate and rhythm with no murmurs, rubs or gallops. Normal peripheral perfusion. No edema. GASTROINTESTINAL: Mildly tender in the epigastric region, the abdomen is otherwise soft, nontender, nondistended. No palpable masses or HSM. Bowel sounds present in all quadrants. No CVA tenderness bilaterally. MUSCULOSKELETAL: Full range of motion of all joints without discomfort. INTEGUMENTARY: No rash or other significant dermatologic conditions noted. NEUROLOGIC: Alert and oriented X 4 with normal affect. Normal strength and sensation in all 4 extremities. No focal neurologic deficits noted. Normal speech. Normal gait observed. ED COURSE AND MEDICAL DECISION MAKING: CC: Patient presenting with complaint of nausea/vomiting, epigastric and chest pain DIFFERENTIAL DIAGNOSIS: Includes, but not limited to cyclic vomiting syndrome, cannabinoid hyperemesis, gastritis, peptic ulcer disease, gastroenteritis, esophagitis, GERD, dehydration, electrolyte imbalance, bowel obstruction, bowel perforation, ACS, among others. INTERPRETATION OF LABS: No leukocytosis, no anemia, normal platelets, no significant electrolyte abnormalities, BUN elevated, creatinine normal, slightly elevated T bili, otherwise normal liver enzymes and lipase. UA negative for infection, consistent with dehydration. Negative troponin. IMAGING: PA CHEST RADIOGRAPH AND UPRIGHT AND SUPINE AP RADIOGRAPHS OF THE ABDOMEN CLINICAL HISTORY: Abdominal pain. Evaluate for free air or evidence of bowel obstruction. COMPARISON STUDY: CT of the abdomen and pelvis June 20, 2017 and chest radiograph and abdominal series October 26, 2017. FINDINGS: Lung volumes are normal. Lungs are clear. No pneumothorax or pleural effusion is noted. Cardiac size is normal. Mediastinal contours are normal. There is no evidence for pulmonary edema. There is no free air. The bowel gas pattern is normal. IMPRESSION: 1. No free air or evidence of bowel obstruction. 2. No acute cardiopulmonary findings. EKG: Shows normal sinus rhythm with a rate of 81 bpm, no acute ST-T wave changes, no ectopy, no significant change when compared to previous EKG from by my interpretation. MEDICATION RECONCILIATION: I attest that I have personally reviewed the patient 's current medication list. INITIAL VITAL SIGNS REVIEW: I reviewed the patient's initial vital signs and interpret them as follows: T: Afebrile; BP: Normotensive; HR: Mildly tachycardic; RR: Within normal limits; Pulse Ox: Within normal limits on room air. Blood pressure screening: The patient was found to have normal blood pressure on screening and does not require follow-up for repeat blood pressure check. SUMMARY: Patient was evaluated at bedside, history and physical exam performed. Patient is alert and oriented, in no acute distress, resting calmly in stretcher. Patient does appear to be moderately dehydrated with dry mucous membranes and dry skin. Patient is complaining of nausea, but is not actively vomiting or having dry heaves. Patient is mildly tender in the epigastric abdomen to palpation, reproduces his complaint. EKG reviewed at bedside, no acute changes. Orders were placed at bedside for labs, UA, IV fluids bolus for hydration, 8 mg IV Zofran for nausea, GI cocktail for epigastric and chest pain, acute abdominal series to evaluate for abdominal/chest pain. Patient discussed with Dr. Mann, who agrees with my assessment and plan. Labs and imaging reviewed as above, no acute findings. No evidence of obstruction or bowel perforation on chest x-ray. EKG and troponin are negative for ACS. On reassessment, the patient states that his epigastric and chest pain is resolved after GI cocktail. The patient did complain of his nausea coming back, he was given IV Phenergan. Patient was given a second liter IV fluid bolus for continued hydration, and was provided with Sprite for p.o. trial. Patient reassessed multiple times throughout ED stay, he has remained stable, his nausea has improved overall, and he has not vomited and has kept down p.o. fluids. Patient was updated on all results and plan for discharge, he has an appointment with his PCP tomorrow, he was encouraged to keep this. Rx for Phenergan suppositories were sent to the patient's pharmacy, he was educated regarding their use. Patient was also given strict return precautions should his symptoms worsen, he verbalized understanding. Patient was discharged home in stable condition and ambulatory. Problem List Medical Problems: (1) No known health problems Status: Chronic Current/Historical Medications Scheduled Pantoprazole (Protonix), 20 MG PO DAILY Scheduled PRN Promethazine (Phenergan Suppository), 25 MG PA Q4H PRN for Nausea Allergies Coded Allergies: No Known Allergies (Unverified , NONE, 10/30/17) Vital Signs Date Time Temp Pulse Resp B/P (MAP) Pulse Ox O2 Delivery O2 Flow Rate FiO2 10/30/17 20:15 36.8 72 15 135/74 96 Room Air 10/30/17 18:15 72 18 100/73 95 Room Air 10/30/17 17:17 70 15 114/76 97 10/30/17 15:51 86 19 117/83 98 Room Air 10/30/17 15:04 71 24 115/84 96 Room Air 10/30/17 14:08 72 10/30/17 13:31 37.0 96 18 120/81 98 Room Air Laboratory Results 10/30/17 14:40 Red Blood Count 5.44, Mean Corpuscular Volume 86.9, Mean Corpuscular Hemoglobin 30.5, Mean Corpuscular Hemoglobin Concent 35.1, Mean Platelet Volume 9.3, Neutrophils (%) (Auto) 67.3, Lymphocytes (%) (Auto) 22.0, Monocytes (%) (Auto) 9.5, Eosinophils (%) (Auto) 0.7, Basophils (%) (Auto) 0.3, Neutrophils # (Auto) 7.14, Lymphocytes # (Auto) 2.33, Monocytes # (Auto) 1.01, Eosinophils # (Auto) 0.07, Basophils # (Auto) 0.03 10/30/17 14:40 Test 10/30/17 14:40 10/30/17 16:00 White Blood Count 10.60 K/uL (4.8-10.8) Red Blood Count 5.44 M/uL (4.7-6.1) Hemoglobin 16.6 g/dL (14.0-18.0) Hematocrit 47.3 % (42-52) Mean Corpuscular Volume 86.9 fL (80-100) Mean Corpuscular Hemoglobin 30.5 pg (25-34) Mean Corpuscular Hemoglobin Concent 35.1 g/dl (32-36) Platelet Count 277 K/uL (130-400) Mean Platelet Volume 9.3 fL (7.4-10.4) Neutrophils (%) (Auto) 67.3 % Lymphocytes (%) (Auto) 22.0 % Monocytes (%) (Auto) 9.5 % Eosinophils (%) (Auto) 0.7 % Basophils (%) (Auto) 0.3 % Neutrophils # (Auto) 7.14 K/uL (1.4-6.5) Lymphocytes # (Auto) 2.33 K/uL (1.2-3.4) Monocytes # (Auto) 1.01 K/uL (0.11-0.59) Eosinophils # (Auto) 0.07 K/uL (0-0.5) Basophils # (Auto) 0.03 K/uL (0-0.2) RDW Standard Deviation 40.5 fL (36.4-46.3) RDW Coefficient of Variation 12.7 % (11.5-14.5) Immature Granulocyte % (Auto) 0.2 % Immature Granulocyte # (Auto) 0.02 K/uL (0.00-0.02) Anion Gap 12.0 mmol/L (3-11) Est Creatinine Clear Calc Drug Dose 66.9 ml/min Estimated GFR () 77.9 Estimated GFR (Non- 67.2 BUN/Creatinine Ratio 21.6 (10-20) Calcium Level 8.8 mg/dl (8.5-10.1) Total Bilirubin 1.1 mg/dl (0.2-1) Direct Bilirubin 0.3 mg/dl (0-0.2) Aspartate Amino Transf (AST/SGOT) 14 U/L (15-37) Alanine Aminotransferase (ALT/SGPT) 34 U/L (12-78) Alkaline Phosphatase 89 U/L (45-117) Troponin I < 0.015 ng/ml (0-0.045) Total Protein 8.2 gm/dl (6.4-8.2) Albumin 4.0 gm/dl (3.4-5.0) Lipase 178 U/L (73-393) Urine Color DK YELLOW Urine Appearance CLEAR (CLEAR) Urine pH 5.0 (4.5-7.5) Urine Specific [place] 1.029 (1.000-1.030) Urine Protein TRACE (NEG) Urine Glucose (UA) NEG (NEG) Urine Ketones 3+ (NEG) Urine Occult Blood 3+ (NEG) Urine Nitrite NEG (NEG) Urine Bilirubin 1+ (NEG) Urine Urobilinogen NEG (NEG) Urine Leukocyte Esterase NEG (NEG) Urine WBC (Auto) 1-5 /hpf (0-5) Urine RBC (Auto) 5-10 /hpf (0-4) Urine Hyaline Casts (Auto) 1-5 /lpf (0-5) Urine Epithelial Cells (Auto) 5-10 /lpf (0-5) Urine Bacteria (Auto) NEG (NEG) Medications Administered Medications (Trade) Dose Ordered Sig/Armando Route Start Time Stop Time Status Last Admin Dose Admin Sodium Chloride 2,000 ml @ 999 mls/hr Q2H1M STAT IV 10/30/17 13:48 10/30/17 15:48 DC 10/30/17 15:03 999 MLS/HR Miscellaneous Medication (Gi Cocktail) 24 ml NOW STAT PO 10/30/17 13:48 10/30/17 13:53 DC 10/30/17 15:54 24 ML Lidocaine HCl (Viscous Lidocaine 2% Soln) 20 ml STK-MED ONCE .ROUTE 10/30/17 14:44 10/30/17 14:45 DC 10/30/17 15:54 20 ML Al Hydroxide/Mg Hydroxide (Maalox Susp) 30 ml STK-MED ONCE .ROUTE 10/30/17 14:44 10/30/17 14:45 DC 10/30/17 15:54 30 ML Ondansetron HCl 8 mg/Dextrose 54 ml @ 216 mls/hr TODAY@1353 IV 10/30/17 13:53 10/30/17 15:15 DC 10/30/17 15:03 216 MLS/HR Sodium Chloride 1,000 ml @ 999 mls/hr Q1H1M STAT IV 10/30/17 18:20 10/30/17 19:20 DC 10/30/17 18:30 999 MLS/HR Promethazine HCl 25 mg/Sodium Chloride 51 ml @ 204 mls/hr NOW STAT IV 10/30/17 19:36 10/30/17 19:50 DC 10/30/17 19:53 204 MLS/HR Departure Information Impression Primary Impression: Nausea & vomiting Dispostion Home / Self-Care Condition GOOD Prescriptions Promethazine (Phenergan Suppository) 25 Mg Supp 25 MG PA Q4H Y for Nausea, #10 SUPP Prov: Sussy Ames CRNP 10/30/17 Referrals Amol Ferris M.D. (PCP) Patient Instructions ED Diet [place], ED Nausea Vomiting, My [facility] Additional Instructions You have been evaluated and treated in the Emergency Department today for your nausea/vomiting and upper abdominal/chest pain. Laboratory results and imaging studies have ruled out any emergent causes for your symptoms which would warrant admission or surgery. You have been prescribed Phenergan suppositories to be used as needed for severe nausea/vomiting. Take as prescribed. For pain control, you can use the following [id number] medicines (if >12 yo): - Regular strength (325mg/tab) Tylenol (acetaminophen) 2 tabs every 4-6 hours as needed. Do not exceed 10 tablets in a 24 hour period. Avoid taking more than 3000 mg of Tylenol per day. This includes any other sources of acetaminophen you may take on a regular basis. - Regular strength (200 mg/tab) Advil (ibuprofen) 3 tabs every 6-8 hours as needed. Do not exceed a dose of 2400 mg per day. Drink plenty of fluids to stay well hydrated. Stick with clear liquids and bland foods until you are consistently without vomiting, then you can slowly progress back to a normal diet. Please follow-up with your Primary Care Provider in the next few days for further management of your symptoms. You should also schedule a follow-up appointment with your greens cutter. Return to the emergency department for severe worsening abdominal or back pain, worsening nausea/vomiting, vomiting blood, blood in your stool or urine, fevers > 101, severe dizziness or passing out, or any other concerns. Work Instructions Return To Work: 2 days Problem Qualifiers Primary Impression: Nausea & vomiting Vomiting type: unspecified Vomiting Intractability: unspecified Qualified Codes: R11.2 - Nausea with vomiting, unspecified
--- NOTE | 2017-10-30 18:02 | DIAGNOSTIC IMAGING REPORT ---
PA CHEST RADIOGRAPH AND UPRIGHT AND SUPINE AP RADIOGRAPHS OF THE ABDOMEN CLINICAL HISTORY: Abdominal pain. Evaluate for free air or evidence of bowel obstruction. COMPARISON STUDY: CT of the abdomen and pelvis June 20, 2017 and chest radiograph and abdominal series October 26, 2017. FINDINGS: Lung volumes are normal. Lungs are clear. No pneumothorax or pleural effusion is noted. Cardiac size is normal. Mediastinal contours are normal. There is no evidence for pulmonary edema. There is no free air. The bowel gas pattern is normal. IMPRESSION: 1. No free air or evidence of bowel obstruction. 2. No acute cardiopulmonary findings. Electronically signed by: Khari Vazquez M.D. 10/30/2017 6:01 PM Dictated Date/Time: 10/30/2017 5:59 PM
[2017-10-30] MEDS ORDERED: SODIUM CHLORIDE 0.9% 1000ML 1,000 ML IV STA (18:20)
[2017-10-30] MEDS ORDERED: PROM1SUP19 PR (18:52)
[2017-10-30] MEDS ORDERED: PROMETHAZINE HCL INJ 25 MG in SODIUM CHLORIDE 0.9% 50ML 50 ML IV STA (19:36)
[2017-10-30 20:15] VITALS: BP 135/74; PULSE 72; TEMP 36.8; O2SAT 96
== END 2017-10-30 20:45 | disposition home or self-care (01) ==
LOC: C.EDB 13:28 → C.EDA 20:45
DX: R11.2 Nausea with vomiting, unspecified (principal); K21.9 Gastro-esophageal reflux disease without esophagitis; F12.90 Cannabis use, unspecified, uncomplicated; E86.0 Dehydration; Z79.899 Other long term (current) drug therapy